=== PATIENT | female | born 1975 | race Caucasian/White ===

== ENCOUNTER → 2018-01-15 13:03 | Outpatient (POV) | payer BC, SELFPAY | PROVIDERS: Family Provider Nurse Practitioner Family; Visit Provider Nurse Practitioner Acute Care | DX: Z00.00 Encounter for general adult medical examination without abnormal findings (principal) ==

== ENCOUNTER → 2018-01-15 13:44 | Outpatient (CLI) | payer BC, SELFPAY ==
[2018-01-15 14:09] LABS: Basophils # 0.1 K/mm3 (0-0.2); Basophils % 0.9 % (0.1-2.0); Eosinophils # 0.1 K/mm3 (0.0-0.4); Eosinophils % 1.3 % (0.1-12.0); Hematocrit 43.5 % (37.0-47.0); Hemoglobin 13.7 g/dL (12.2-16.2); Lymphocytes # 1.2 K/mm3 (0.7-4.5); Lymphocytes % 18.7 K/mm3 (10-50); Mean Corpuscular HGB Conc 31.5 g/dL (31.8-35.4); Mean Corpuscular Hemoglobin 30.6 pg (27.0-31.2); Mean Platelet Volume 7.5 fl (7.4-10.4); Monocytes # 0.3 K/mm3 (0.1-1.0); Monocytes % 5.3 % (1.7-9.3); Neutrophils # 4.7 K/mm3 (1.8-7.8); Neutrophils % 73.7 % (37.0-80.0); Platelet Count 322 K/mm3 (142-424); Red Blood Count 4.48 M/mm3 (4.20-5.40); Red Cell Distribution Width 13.5 % (11.5-17.5); White Blood Count 6.3 K/mm3 (4.8-10.8)
[2018-01-15 15:06] LABS: Alanine Aminotransferase 19 U/L (12-78); Albumin Level 3.9 gm/dL (3.4-5.0); Albumin/Globulin Ratio 1.2 (1.1-1.8); Alkaline Phosphatase 62 U/L (46-116); Anion Gap 11.7 mEq/L (5-15); Aspartate Amino Transferase 16 U/L (15-37); Bilirubin,Total 0.4 mg/dL (0.2-1.0); Blood Urea Nitrogen 6 mg/dL (7-18); Calcium 9.3 mg/dL (8.5-10.1); Carbon Dioxide 29 mmol/L (21.0-32.0); Chloride 105 mmol/L (98-107); Creatinine,Serum 0.68 mg/dL (0.55-1.02); Estimated Glomerular Filt Rate 95 ml/min (>60); Ferritin 35 ng/mL (8-388); GFR (African American) 115 ML/MIN (>60); Globulin 3.3 gm/dl (1.3-3.2); Glucose 93 mg/dL (74-106); Potassium 4.7 mmoL/L (3.5-5.1); Sodium 141 mmol/L (136-145); Total Protein,Serum 7.2 gm/dL (6.4-8.2)
[2018-01-15 15:08] LABS: C-Reactive Protein < 0.2 mg/L (0.0-0.9)
[2018-01-15 15:35] LABS: Erythrocyte Sedimentation Rate 9 mm/hr (0-20)
[2018-01-16 08:23] LABS: Iron 71 ug/dL (27-159); UIBC 289 ug/dL (131-425)
[2018-01-16 12:10] LABS: Iron Saturation 20 % (15-55)
== END ==
PROVIDERS: Family Provider Nurse Practitioner Family; Visit Provider Nurse Practitioner Acute Care
DX: D64.9 Anemia, unspecified (principal)
CPT/HCPCS: 36415; 80053; 82728; 83550; 85025; 85651; 86140

== ENCOUNTER → 2018-01-22 12:26 | Outpatient (CLI) | payer BC, SELFPAY ==
--- NOTE | 2018-01-22 | CT_ITS ---
CT abdomen pelvis w con CT enterography CLINICAL INDICATION: Crohn's disease, prior surgery, evaluate for obstruction ITS.REASON: CROHN'S ORDERING PHYSICIAN: Sara Knott PATIENT AGE: 42 years COMPARISON: 11/22/2016 TECHNIQUE: CT enterography performed with helical imaging following the intravenous administration of 100 mL's of Isovue-370. Arterial and portal venous phase images are obtained. 1500 mL of Breeza given by mouth. Axial images obtained with sagittal and coronal reformats. All CT scans at the facility use one or more dose reduction, viz: automated exposure control; ma/kV adjustment per patient size (including targeted exams where dose is matched to indication; i.e. head); or iterative reconstruction technique. PROCEDURE: Oral Contrast: 1500 mL of Breeza IV Contrast: 100 mL of Isovue-370. FINDINGS: Lung bases are clear. No focal liver lesion. No radio opaque gallstone. The spleen, adrenal glands, pancreas, and kidneys have an unremarkable appearance. No evidence of intestinal obstruction or free air. The small bowel is not dilated. Postsurgical changes are present at the ileocecal junction with suture line present at this region. There is some minimal thickening of the distal aspect of the ileum with mild enhancement at this area but no evidence of obstruction. No other areas of mucosal thickening or enhancement apparent. There is a small right ovarian cyst measuring 2 cm with mild enhancement of the wall. There are bilateral perineural cyst at 16 mm and 14 mm on the right and left respectively. No acute bony anomalies. 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 The SMA has an unremarkable appearance. IMPRESSION: 1. Postsurgical changes at the ileocecal junction with a short segment area of enhancement of the distal ileum and mild thickening suggesting involvement of Crohn's disease. 2. No intestinal obstruction abscess or fistula. 3. 2 cm right ovarian cyst. 4. 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
== END ==
PROVIDERS: Family Provider Nurse Practitioner Family; PCP Nurse Practitioner Family; Visit Provider Nurse Practitioner Acute Care
DX: K50.00 Crohn's disease of small intestine without complications (principal); R10.31 Right lower quadrant pain
CPT/HCPCS: 74177; Q9967

== ENCOUNTER → 2018-02-12 09:02 | Outpatient (POV) | payer BC, SELFPAY | PROVIDERS: Visit Provider Nurse Practitioner Acute Care | DX: Z00.00 Encounter for general adult medical examination without abnormal findings (principal) ==

== ENCOUNTER → 2018-03-08 08:09 | Outpatient (CLI) | payer BC, SELFPAY ==
--- NOTE | 2018-03-08 08:11 | US_ITS ---
US transvaginal HISTORY: Pelvic pain ITS.REASON: US TV FOR Pelvic and abdominal pain ORDERING PHYSICIAN: Xavier Pike MD PATIENT AGE: 42 years Comparison: None FINDINGS: The uterus measures 7.8 x 4.2 x 4.8 cm. There is a small pocket of fluid along the lower aspect of the endometrium which measures 7 x 7 mm. Endometrial thickness is 5 mm. scar is noted along the anterior aspect of the body of the uterus. The left ovary is 3 x 2 cm there is a 1.5 cm left ovarian cyst. The right ovary is 2.6 x 1.9 cm and has an unremarkable appearance. No cul-de-sac fluid is evident. IMPRESSION: 1. Small amount fluid within the endometrium. 2.. Small left ovarian cyst
== END ==
PROVIDERS: Family Provider Nurse Practitioner Family; PCP Nurse Practitioner Family; Visit Provider Nurse Practitioner Obstetrics & Gynecology
DX: R10.2 Pelvic and perineal pain (principal); R10.9 Unspecified abdominal pain
CPT/HCPCS: 76830

== ENCOUNTER → 2018-10-31 13:08 | Outpatient (CLI) | payer BC, SELFPAY ==
--- NOTE | 2018-10-31 13:11 | MR_ITS ---
MR head/brain wo con HISTORY: Severe headache with dizziness and blurred vision ITS.REASON: ACUTE NONINTRACTABLE HEADACHE, DIZZINESS ORDERING PHYSICIAN: Anum Roberts PATIENT AGE: 43 years Comparison: None TECHNIQUE: Standard multiplanar multiecho sequences are performed without contrast. FINDINGS: No midline shift, mass effect, intracranial hemorrhage, or hydrocephalus. No evidence of acute infarction. The cerebellopontine angles, cerebellum, and brainstem have an unremarkable appearance. Normal stern-white matter differentiation with no significant white matter signal alteration evident. The hippocampal gyri are unremarkable and the temporal horns are symmetric. The pituitary, corpus callosum, and craniocervical junction have an unremarkable appearance. Incidental note made of small amount fluid in the right mastoid sinus. Small amount fluid is also noted along the posterior aspect of the right TMJ joint. There is mild mucosal thickening of left ethmoid sinus. IMPRESSION: 1. No acute intracranial findings. 2. Right mastoid effusion. Mild mucosal thickening left ethmoid and maxillary sinus. 3. Small amount of fluid along the posterior aspect of the right TMJ
== END ==
PROVIDERS: PCP Nurse Practitioner Family; Visit Provider Nurse Practitioner Family
DX: R51 Headache (principal); R42 Dizziness and giddiness
CPT/HCPCS: 70551

== ENCOUNTER → 2019-02-07 12:12 | Outpatient (CLI) | payer BC, SELFPAY ==
[2019-02-07 12:46] LABS: Basophils # 0.1 K/mm3 (0-0.2); Eosinophils # 0.1 K/mm3 (0.0-0.4); Eosinophils % 1.4 % (0.1-12.0); Hematocrit 40.5 % (37.0-47.0); Hemoglobin 13.2 g/dL (12.2-16.2); Lymphocytes # 1.6 K/mm3 (0.7-4.5); Lymphocytes % 25.1 % (10-50); Mean Corpuscular HGB Conc 32.7 g/dL (31.8-35.4); Mean Corpuscular Volume 94.8 fl (81-99); Mean Platelet Volume 7.4 fl (7.4-10.4); Monocytes # 0.4 K/mm3 (0.1-1.0); Neutrophils # 4.1 K/mm3 (1.8-7.8); Neutrophils % 65.4 % (37.0-80.0); Platelet Count 338 K/mm3 (142-424); Red Blood Count 4.28 M/mm3 (4.20-5.40); Red Cell Distribution Width 13.4 % (11.5-17.5); White Blood Count 6.2 K/mm3 (4.8-10.8)
[2019-02-07 13:50] LABS: Alanine Aminotransferase 18 U/L (12-78); Albumin Level 3.8 gm/dL (3.4-5.0); Albumin/Globulin Ratio 1.1 (1.1-1.8); Alkaline Phosphatase 66 U/L (46-116); Aspartate Amino Transferase 9 U/L (15-37); Bilirubin,Total 0.4 mg/dL (0.2-1.0); Blood Urea Nitrogen 8 mg/dL (7-18); Carbon Dioxide 26 mmol/L (21.0-32.0); Chloride 104 mmol/L (98-107); Creatinine,Serum 0.71 mg/dL (0.55-1.02); Estimated Glomerular Filt Rate 90 ml/min (>60); GFR (African American) 109 ML/MIN (>60); Globulin 3.5 gm/dl (1.3-3.2); Glucose 92 mg/dL (74-106); Sodium 141 mmol/L (136-145); Total Protein,Serum 7.3 gm/dL (6.4-8.2)
[2019-02-08 13:07] LABS: Adenovirus F 40/41, stool Not Detected (NotDetected); Astrovirus Not Detected (NotDetected); Campylobacter Not Detected (NotDetected); Clostridium Difficile A/B, PCR Not Detected (NotDetected); Cryptosporidium Not Detected (NotDetected); Cyclospora Cayetanesis Not Detected (NotDetected); Entamoeba histolytica Not Detected (NotDetected); Enteroaggregative E coli Not Detected (NotDetected); Enteropathogenic E coli Not Detected (NotDetected); Enterotoxigenic E coli Not Detected (NotDetected); Giardia lamblia Not Detected (NotDetected); Norovirus Not Detected (NotDetected); Plesimonas Shigalloides, PCR Not Detected (NotDetected); Rotavirus A Not Detected (NotDetected); Salmonella, PCR Not Detected (NotDetected); Sapovirus Not Detected (NotDetected); Shiga-like toxin E coli Not Detected (NotDetected); Shigella Enterovasive E coli Not Detected (NotDetected); Vibrio Cholerae Not Detected (NotDetected); Vibrio, PCR Not Detected (NotDetected); Yersinia Entercolitica, PCR Not Detected (NotDetected)
== END ==
PROVIDERS: Visit Provider Nurse Practitioner Family
DX: R10.84 Generalized abdominal pain (principal); R19.7 Diarrhea, unspecified
CPT/HCPCS: 36415; 80053; 85025; 87507

== ENCOUNTER → 2019-02-07 21:20 | Outpatient (CLI) | payer BC, SELFPAY | PROVIDERS: Visit Provider Nurse Practitioner Family | DX: R10.84 Generalized abdominal pain (principal); R19.7 Diarrhea, unspecified ==

== ENCOUNTER → 2019-04-22 06:31 | Outpatient (CLI) | payer BC, SELFPAY ==
--- NOTE | 2019-04-22 06:33 | NM_ITS ---
History:Family history, Tobacco use Procedure: Patient exercised on Sean protocol 9 minutes and 45, resting heart rate 60 bpm, resting blood pressure 118/56, with exercise maximum heart rate achieve was 143 bpm which is less than % of the maximum predicted heart rate and blood pressure was 138/76. Test was stopped due to shortness of breath, patient denied any complaint of chest pain. Patient has good exercise capacity achieved 10.1 mets of workload on treadmill, the blood pressure response to exercise was adequate. Electrocardiogram: Resting electrocardiogram showed sinus rhythm , with exercise there is less than 1.5mm ST segment depression noted from the baseline EKG. The EKG portion of the exercise Myoview is negative for ischemia.. Cardias Stress and Resting SPECT images: Cardias Stress and Resting SPECT images were obtained using technetium 99m Myoview 32.0 mCi stress and 10.50 mCi at rest. Gated SPECT further analysis of segmental wall motion and calculation of ejection fraction also done. Cardiac stress and resting SPECT show uniform myocardial activity without segmental perfusion abnormality , the computer derived ejection fraction is 52% with no regional wall motion abnormality, right ventricle is normal size and contractility. Conclusion: 1. The EKG portion of the exercise Myoview is negative for ischemia, patient has good exercise capacity achieved 10.1mets of workload on treadmill, the blood pressure response to exercise was adequate. Test was stopped due to shortness of breath. 2. No scintigraphic evidence of reversible ischemia seen, computer derived ejection fraction is 52% with no regional wall motion abnormality ,right ventricle is normal size and contractility.. 3. Normal exercise Myoview study.
--- NOTE | 2019-04-22 06:33 | CA_ITS ---
PROCEDURE: 2-D M-mode and color Doppler study INDICATIONS FOR THE TEST: Chest pain X COPD Heart Murmur Tobacco SmokingX Palpitations Fatigue Syncope Edema Hypertension Diabetes Mellitus Rheumatic Fever SOBXDOEXObesity Hyperlipidemia Family History HD Additional History X PATIENT INFORMATION HEIGHT: 65 WEIGHT:169 GENDER: Female B/P:121/69 2-D/M-MODE INTERPRETATION: 2-D MEASUREMENTS OBSERVED VALUES IN CMS Right Ventricular Dimension (RVDd) 2.4 Interventricular Septum (Thickness)(IVsd) 1.0 Left Ventricular Internal Dimensions(LVIDd) 4.9 Left Ventricular Posterior Wall (Thickness)(LVPWd) .8 Aortic Root 2.8 Aortic Cusp Separation Left Atrial Dimensions (LAD) 3.5 2D 1. Left atrium is normal size, left ventricle is normal size, there is no concentric left ventricular hypertrophy, visually estimated ejection fraction 55% with no regional wall motion abnormality. 2. The right atrium and right ventricle are qualitatively mildly enlarged with normal contractility. 3. The aortic valve is minimally thickened and fibrosed. 4. The mitral and tricuspid valvular grossly normal. 5. The pulmonic valve is poorly visualized. 6. No significant pericardial effusion noted. DOPPLER INTERROGATION: Doppler interrogation of the aortic, mitral and tricuspid valvular presence of mild mitral and tricuspid regurgitation, tricuspid regurgitation jet velocity is inadequate for calculation of the right ventricular systolic pressure, diastolic parameters are within normal range. CONCLUSION: 1. Normal left ventricular size, preserved left ventricular systolic function, visually estimated ejection fraction 55% with no regional wall motion abnormality, diastolic parameters are within normal range, inferior vena cava is normal size with normal inspiratory collapse. 2. Mildly qualitatively enlarged right ventricle with normal contractility. 3. Mild mitral and tricuspid regurgitation. 4. No significant pericardial effusion noted.
--- NOTE | 2019-04-22 07:18 | HMH.ITSHM ---
Current Home Medications as stated by this patient Farhana Barnes or reimbursement representative. []RANITIDINE
== END ==
PROVIDERS: PCP Nurse Practitioner Family; Visit Provider Internal Medicine
DX: I20.9 Angina pectoris, unspecified (principal); R06.09 Other forms of dyspnea; I73.9 Peripheral vascular disease, unspecified; F17.200 Nicotine dependence, unspecified, uncomplicated
CPT/HCPCS: 78452; 93017; 93306; A9502

== ENCOUNTER → 2020-06-22 15:29 | Outpatient (CLI) | payer BC, SELFPAY ==
[2020-06-22 15:42] LABS: Basophils # 0.1 K/mm3 (0-0.2); Basophils % 0.8 % (0.1-2.0); Eosinophils # 0.1 K/mm3 (0.0-0.4); Eosinophils % 1.2 % (0.1-12.0); Hematocrit 42.5 % (37.0-47.0); Hemoglobin 13.7 g/dL (12.2-16.2); Lymphocytes # 1.7 K/mm3 (0.7-4.5); Lymphocytes % 20.8 % (10-50); Mean Corpuscular HGB Conc 32.2 g/dL (31.8-35.4); Mean Corpuscular Hemoglobin 30.8 pg (27.0-31.2); Mean Corpuscular Volume 95.5 fl (81-99); Mean Platelet Volume 7.6 fl (7.4-10.4); Monocytes # 0.4 K/mm3 (0.1-1.0); Monocytes % 4.8 % (1.7-9.3); Neutrophils # 5.7 K/mm3 (1.8-7.8); Neutrophils % 72.3 % (37.0-80.0); Platelet Count 317 K/mm3 (142-424); Red Blood Count 4.44 M/mm3 (4.20-5.40); Red Cell Distribution Width 13.4 % (11.5-17.5); White Blood Count 7.9 K/mm3 (4.8-10.8)
[2020-06-22 16:51] LABS: Chloride 105 mmol/L (98-107); Potassium 4.8 mmoL/L (3.5-5.1); Sodium 138 mmol/L (136-145)
[2020-06-22 16:53] LABS: Alanine Aminotransferase 11 U/L (12-78); Aspartate Amino Transferase 21 U/L (14-36); Blood Urea Nitrogen 11 mg/dl (7-17); Estimated Glomerular Filt Rate 91 ml/min (>60); GFR (African American) 110 ML/MIN (>60)
[2020-06-22 16:54] LABS: Albumin Level 4.2 g/dl (3.5-5.0); Albumin/Globulin Ratio 1.6 (1.1-1.8); Alkaline Phosphatase 52 U/L (38-126); Anion Gap 12.8 mEq/L (5-15); Bilirubin,Total 0.9 mg/dl (0.2-1.3); Calcium 9.6 mg/dl (8.4-10.2); Carbon Dioxide 25 mmol/L (22.0-30.0); Globulin 2.7 g/dL (1.3-3.2); Glucose 100 mg/dl (74-100); Total Protein,Serum 6.9 g/dl (6.3-8.2)
== END ==
PROVIDERS: Visit Provider Nurse Practitioner Family
DX: R10.32 Left lower quadrant pain (principal)
CPT/HCPCS: 36415; 80053; 85025

== ENCOUNTER 2022-07-21 16:17 | Emergency (ER) | payer BC, SELFPAY ==
[2022-07-21] VITALS (7 sets, daily range): BP systolic 112–148; BP diastolic 73–97; PULSE 58–86; RESP 14–18; TEMP 36.8–36.9; O2SAT 96–99; BMI 33.6
[2022-07-21 16:47] LABS: Basophils % 0.6 % (0.1-2.0); Eosinophils % 0.6 % (0.1-12.0); Hematocrit 45.5 % (37.0-47.0); Lymphocytes # 1.9 K/mm3 (0.7-4.5); Lymphocytes % 26.2 % (10-50); Mean Corpuscular HGB Conc 30.7 g/dL (31.8-35.4); Mean Corpuscular Hemoglobin 29.7 pg (27.0-31.2); Mean Corpuscular Volume 96.7 fl (81-99); Mean Platelet Volume 7.4 fl (7.4-10.4); Monocytes # 0.4 K/mm3 (0.1-1.0); Monocytes % 5.3 % (1.7-9.3); Neutrophils # 4.8 K/mm3 (1.8-7.8); Neutrophils % 67.3 % (37.0-80.0); Platelet Count 350 K/mm3 (142-424); Red Cell Distribution Width 13.9 % (11.5-17.5); White Blood Count 7.2 K/mm3 (4.8-10.8)
--- NOTE | 2022-07-21 17:04 | PC.NURSE ---
PT finished with oral contrast
[2022-07-21 17:07] LABS: Chloride 104 mmol/L (98-107); Potassium 3.9 mmoL/L (3.5-5.1); Sodium 137 mmol/L (136-145)
[2022-07-21 17:09] LABS: Alanine Aminotransferase 38 U/L (12-78); Aspartate Amino Transferase 46 U/L (14-36); Bilirubin,Total 0.8 mg/dl (0.2-1.3); Blood Urea Nitrogen 12 mg/dl (7-17); Creatinine Clearance Estimated 145 mL/min (50-200); Estimated Glomerular Filt Rate 90 ml/min (>60); GFR (African American) 109 ML/MIN (>60)
[2022-07-21 17:10] LABS: Albumin Level 4.5 g/dl (3.5-5.0); Albumin/Globulin Ratio 1.6 (1.1-1.8); Alkaline Phosphatase 79 U/L (38-126); Anion Gap 12.9 mEq/L (5-15); Calcium 8.9 mg/dl (8.4-10.2); Carbon Dioxide 24 mmol/L (22.0-30.0); Globulin 2.9 g/dL (1.3-3.2); Glucose 97 mg/dl (74-100); Lipase 102 U/L (23-300); Total Protein,Serum 7.4 g/dl (6.3-8.2)
--- NOTE | 2022-07-21 17:59 | CT_ITS ---
PROCEDURE INFORMATION: Exam: CT Abdomen And Pelvis With Contrast Exam date and time: 07/21/2022 6:29 PM Age: 46 years old Clinical indication: Flank; Patient HX: Oral and iv contrast given, left side and left lower abdominal pain. ; Additional info: L flank pain, lower abd pain TECHNIQUE: Imaging protocol: Computed tomography of the abdomen and pelvis with contrast. Radiation optimization: All CT scans at this facility use at least one of these dose optimization techniques: automated exposure control; mA and/or kV adjustment per patient size (includes targeted exams where dose is matched to clinical indication); or iterative reconstruction. Contrast material: ISOVUE; Contrast volume: 75 ml; Contrast route: IV; Other contrast: Oral, gastrograffin, 30; COMPARISON: ABDW CT abdomen w con 02/15/2018 7:33 PM FINDINGS: Tubes, catheters and devices: None noted. Lungs: Lung bases appear clear. Heart: No significant coronary calcifications. No cardiomegaly. No significant pericardial effusion. Liver: Normal. No mass. Gallbladder and bile ducts: Normal. No calcified stones. No ductal dilation. Pancreas: Normal. No ductal dilation. Spleen: Normal. No splenomegaly. Adrenal glands: Normal. No mass. Kidneys and ureters: Normal. No hydronephrosis. Stomach and bowel: Unremarkable. No obstruction. No mucosal thickening. Appendix: No evidence of appendicitis. Intraperitoneal space: Unremarkable. No free air. No significant fluid collection. Retroperitoneal space: No significant retroperitoneal inflammatory changes are noted. Vasculature: Unremarkable. No abdominal aortic aneurysm. Lymph nodes: Unremarkable. No enlarged lymph nodes. Urinary bladder: Unremarkable as visualized. Reproductive: 2 cm left Bartholin's duct cyst. Bilobed left ovarian cyst. Bones/joints: Unremarkable. No acute fracture. Soft tissues: Right periareolar skin thickening. Correlate with mammogram and breast exam. IMPRESSION: 1. No CT evidence of nephroureterolithiasis. 2. Left ovarian cyst. 3. Incidental right periareolar skin thickening. Correlate with mammogram and breast exam.
[2022-07-21 18:06] LABS: Microscopic, Urine URINE MICROSCOPIC (MICROSCOPIC)
[2022-07-21 18:07] LABS: Appearance,Urine CLEAR (Clear); Bilirubin,Urine Negative (Negative); Blood, Urine 1+ (Negative); Color,Urine YELLOW (Yellow); Glucose,Urine (UA) Negative (Negative); Ketones,Urine Negative (Negative); Leukocyte Esterase,Urine Negative (Negative); Nitrate,Urine Negative (Negative); Protein,Urine Negative (Negative); Urobilinogen,Urine 0.2 EU/dl (0.2)
[2022-07-21 18:10] LABS: Urine Pregnancy, HCG Qual. Negative (Negative)
[2022-07-21 18:34] LABS: Bacteria,Urine Trace /lpf; WBC,Urine Occasional #/hpf (0-3)
--- NOTE | 2022-07-21 18:41 | PC.NURSE ---
pt returned from CT
--- NOTE | 2022-07-21 18:52 | HMH.EDGENADL ---
Discharge Plan Disposition Patient Disposition: Home, Self-Care Condition: Good Chief Complaint: PAIN Prescriptions Prescriptions: No Action buspirone 10 mg tablet 10 mg PO Label Comments: TAKE 1 TABLET BY MOUTH TWICE DAILY albuterol sulfate 90 mcg/actuation HFA aerosol inhaler INHALATION Label Comments: INHALE 1 PUFF BY MOUTH EVERY 4 HOURS NEEDED dicyclomine 10 mg capsule 10 mg PO Label Comments: TAKE 1 CAPSULE BY MOUTH 4 TIMES DAILY NEEDED FOR ABDOMINAL PAIN famotidine 40 mg tablet 40 mg PO ustekinumab 90 mg/mL syringe SQ magnesium 250 mg tablet 250 mg PO DAILY Referrals Follow up/Referrals: Anum Roberts APRN [Primary Care Provider] - See instructions Activity Restrictions/Add. Instructions Additional Instructions/Restrictions: Tylenol as needed for pain. Follow-up with Dr. Pike, gynecology, for left ovarian cyst. Clinical Impressions Clinical Impression: Cyst of left ovary Instructions Patient Instructions: DI for Ovarian Cyst Discharge ED Provider: James Rod General Adult HPI General Chief complaint: PAIN Stated complaint: poss passing kidney stone Time Seen by Provider: 07/21/22 18:14 Mode of Arrival: Ambulatory Source of Information: Patient Limitations: No Limitations Description of Symptoms (Recalled from ER Triage Doc. by RN): Pt c/o L flank pain radiating to L lower abd x3 weeks. Pt reports no known injuries, denies fevers, denies urinary pain or symptoms. Pt denies n/v/d. Pt does states has had kidney stones in the past approx 20 years ago but symptoms have not been similar. Pt reports hx of chrons disease. History of Present Illness HPI narrative: 3-week history of pain in her left lower lumbar and flank area radiating to her left lower quadrant. Pain worsens with movements and trying to have a bowel movement. Nausea, but no vomiting. Denies urinary symptoms. No change in bowel habits except that she cannot push to have a bowel movement because it increases pain. No blood in her stool. No fever. No injury recalled. She saw her chiropractor for an adjustment this week which did not help the pain. She has tried ice packs and a electrical stimulator unit without improvement. She has a history of Crohn's disease, states that she has lost a foot of bowel. She says that she has a narrowing in her bowel that is very only recent problem with Crohn's. She sees a acetone button paster to [facility]. In [place]. She is on Stelara for Crohn's disease. She also has a prior history of a kidney stone years ago and felt that this seems to remember that it started like this. Related Data Home Medications Medication Instructions Recorded Confirmed albuterol sulfate 90 mcg/actuation g inhalation 08/07/20 08/07/20 aerosol inhaler buspirone 10 mg tablet 10 mg PO 08/07/20 08/07/20 dicyclomine 10 mg capsule 10 mg PO 08/07/20 08/07/20 famotidine 40 mg tablet 40 mg PO 08/07/20 08/07/20 magnesium 250 mg tablet 250 mg PO DAILY 08/07/20 08/07/20 ustekinumab 90 mg/mL subcutaneous mg SQ 08/07/20 08/07/20 syringe Allergies Allergy/AdvReac Type Severity Reaction Status Date / Time codeine [CODEINE] Allergy Unknown I-HIVES Verified 08/07/20 09:19 metronidazole [From Flagyl] Allergy Hives Verified 08/07/20 09:19 PFSH PFSH Social History Smoking Status: Never smoker alcohol intake: never substance use type: denies use current occupational status: employed Travel in the last 8 weeks: None household members: significant other and children housing: apartment current occupation: [employer] current occupational exposures/hazards: No caffeine: No ROS Obtained: Yes Systems reviewed as appropriate & no additional complaints except as documented Constitutional Constitutional: Denies fever(s), Denies headache(s) and Denies weakness ENT Ears, Nose, Mouth, and Throat: Denies headache(s
--- NOTE | 2022-07-21 19:24 | PC.NURSE ---
report given to jeremias barbosa and jeremias carlson at shift change
[2022-07-21 19:34] LABS: C-Reactive Protein 0.9 mg/L (0-4)
[2022-07-21 20:04] LABS: Erythrocyte Sedimentation Rate 26 mm/hr (0-20)
== END 2022-07-21 20:54 | disposition home or self-care (01) ==
PROVIDERS: Emergency Provider Emergency Medicine; PCP Nurse Practitioner Family
DX: N83.202 Unspecified ovarian cyst, left side (principal); Z79.899 Other long term (current) drug therapy; Z88.6 Allergy status to analgesic agent; Z88.1 Allergy status to other antibiotic agents; K50.90 Crohn's disease, unspecified, without complications
CPT/HCPCS: 74177; 80053; 81001; 81025; 83690; 85025; 85651; 86140; 99284; Q9967

== ENCOUNTER → 2022-07-28 08:03 | Outpatient (CLI) | payer BC, SELFPAY ==
--- NOTE | 2022-07-28 08:09 | XR_ITS ---
FINAL REPORT CLINICAL HISTORY: poss kidney stone, lt sided pain 50 ml iso 300 FINDINGS: IVP HISTORY: Left-sided abdominal pain PROCEDURE: The patient was injected with 100 ml of Isovue. Overhead films were obtained. FINDINGS: The information assurance analyst film is unremarkable. Suture material is noted in the right lower quadrant.Postinjection films demonstrate prompt nephrograms bilaterally. The kidneys are normal in size and contour. There is no hydronephrosis. The imaged portions of the ureters are normal. The urinary bladder is unremarkable. There is a minimal postvoid residual. IMPRESSION: No evidence of obstruction. Films reviewed , interpreted and dictated by Dr. Gallego Transcribed by Joseph Flores PA-C. Reviewed, Interpreted and Dictated by Roney Gallego III, MD Transcribed by RENY Austin Authenticated and [facility]
== END ==
LOC: RAD 08:04
PROVIDERS: PCP Nurse Practitioner Family; Visit Provider Nurse Practitioner Obstetrics & Gynecology
DX: N20.0 Calculus of kidney (principal)
CPT/HCPCS: 74400; Q9967

== ENCOUNTER → 2022-08-04 15:46 | Outpatient (CLI) | payer BC, SELFPAY ==
[2022-08-04 16:29] LABS: Basophils # 0.1 K/mm3 (0-0.2); Basophils % 2.1 % (0.1-2.0); Eosinophils # 0.1 K/mm3 (0.0-0.4); Eosinophils % 1.2 % (0.1-12.0); Hematocrit 42.6 % (37.0-47.0); Hemoglobin 13.4 g/dL (12.2-16.2); Lymphocytes # 1.9 K/mm3 (0.7-4.5); Lymphocytes % 32.6 % (10-50); Mean Corpuscular HGB Conc 31.5 g/dL (31.8-35.4); Mean Corpuscular Hemoglobin 30.5 pg (27.0-31.2); Mean Corpuscular Volume 96.7 fl (81-99); Mean Platelet Volume 8.3 fl (7.4-10.4); Monocytes # 0.4 K/mm3 (0.1-1.0); Monocytes % 6.2 % (1.7-9.3); Neutrophils # 3.5 K/mm3 (1.8-7.8); Platelet Count 421 K/mm3 (142-424); Red Cell Distribution Width 14.4 % (11.5-17.5)
[2022-08-04 16:36] LABS: Chloride 103 mmol/L (98-107)
[2022-08-04 16:37] LABS: Potassium 4.4 mmoL/L (3.5-5.1); Sodium 137 mmol/L (136-145)
[2022-08-04 16:39] LABS: Alanine Aminotransferase 60 U/L (12-78); Aspartate Amino Transferase 45 U/L (14-36); Blood Urea Nitrogen 13 mg/dl (7-17); Estimated Glomerular Filt Rate 90 ml/min (>60); GFR (African American) 109 ML/MIN (>60)
[2022-08-04 16:40] LABS: Albumin Level 4.4 g/dl (3.5-5.0); Albumin/Globulin Ratio 1.5 (1.1-1.8); Alkaline Phosphatase 75 U/L (38-126); Anion Gap 12.4 mEq/L (5-15); Bilirubin,Total 0.9 mg/dl (0.2-1.3); Calcium 9.9 mg/dl (8.4-10.2); Carbon Dioxide 26 mmol/L (22.0-30.0); Globulin 2.9 g/dL (1.3-3.2); Glucose 85 mg/dl (74-100); Total Protein,Serum 7.3 g/dl (6.3-8.2)
[2022-08-04 16:43] LABS: HCG Qualitative, Serum Negative (Negative)
== END ==
PROVIDERS: PCP Nurse Practitioner Family; Visit Provider Nurse Practitioner Obstetrics & Gynecology
DX: R10.2 Pelvic and perineal pain (principal)
CPT/HCPCS: 36415; 80053; 84703; 85025

== ENCOUNTER 2022-08-08 07:36 | Day surgery (SDC) | payer BC, SELFPAY ==
[2022-08-04 13:14] VITALS: BMI 33.9
[2022-08-08] VITALS (11 sets, daily range): BP systolic 116–132; BP diastolic 72–86; PULSE 69–104; RESP 12–18; TEMP 36.1–43; O2SAT 94–98
--- NOTE | 2022-08-08 10:00 | EXP.ANES.CKL ---
PFSH PFSH Medical History Allergies Crohn's disease History of anemia History of COVID-19 History of gastroesophageal reflux (GERD) Kidney stone Migraine Surgical History History of bowel resection History of endometrial ablation History of tonsillectomy and adenoidectomy Hx of section Hx of tubal ligation Family History Brother Colon cancer Family history of myocardial infarction Mother Family history of myocardial infarction Social History Smoking Status: Former smoker pack-years: 17 smoking status stop date: January 2022 alcohol intake: current substance use type: denies use current occupational status: employed Travel in the last 8 weeks: None household members: significant other and children housing: apartment current occupation: [employer] current occupational exposures/hazards: No caffeine: Yes do you feel safe at home: Yes victim of physical abuse: No victim of emotional abuse: No victim of sexual abuse: No would you like helpful sources: No [facility] Anesthesia Checklist Patient Identification Patient Identification: Arm Band and Verbal (Name & ) Structural Data Admitted From: Home Planned Operative Procedure/s: Dx lap Consent for Planned Operative Procedure(s) Verified: Yes NPO Status Verified Time NPO: 00:00 Chart Verification Results Verified: CBC, BMP and HCG Additional verifications Anesthesia Reactions: No Hx Blood Transfusions: No Blood Transfusion Reaction: No Airway Assessment C-Spine Mobility Assessed: Yes TMJ Mobility Assessed: Yes Dentition: Good Dentition Neurological Assessment Level of Consciousness: Awake Hx Seizures: No Numbness or tingling in extremities: No Anesthesia Plan Anesthesia Risk discussed: Yes Anesthesia Plan: Verified ASA Class: II Anesthesia Type: General
--- NOTE | 2022-08-08 11:23 | EXP.ANES.I ---
[facility] Anesthesia Record Part I Anesthesia Record I Intake, IV Amount: 1,000 Estimated blood loss (mL): 0 Urine output (mL): 25 Blood Pressure: 126/74 SaO2: 96 Pulse Rate: 92 Respiratory Rate: 12 Temperature: 97.4 F Patient is:: Awake and Stable Stable to PACU at:: 11:20
--- NOTE | 2022-08-08 11:37 | EXP.OP.NOTE ---
Date of procedure: 08/08/22 Pre-op Diagnosis:: Left lower quadrant pain left ovarian cyst Post-op Diagnosis:: Left lower quadrant pain left hemorrhagic ovarian cyst Procedure performed:: Laparoscopic left ovarian cystectomy Surgeon:: Xavier Pike MD ELECTRONICS TEACHER:: Joseph Horan Anesthesia: GETA Estimated blood loss (mL): 25 Clinical Note:: She is a 46-year-old lady who complains of severe left lower quadrant pain. She was worked up for renal colic and a transvaginal ultrasound showed a 2 cm left ovarian cyst. After having discussed the risks and benefits and the fact that she was not getting any better we elected to perform a diagnostic laparoscopy and left ovarian cystectomy. Operative findings:: She had a 2 cm left ovarian cyst that was full of thin brownish fluid consistent with an old hemorrhagic ovarian cyst. The rest the pelvis appeared normal. Operative note:: She was taken the operating room where general anesthesia was found to be adequate. She was prepped and draped normal sterile fashion in the semilithotomy position. A weighted speculum placed in vagina and the anterior lip of the cervix was grasped with a tenaculum. I then inserted a Gayathri GAYATHRI uterine manipulator into the uterine cavity. The balloon was insufflated. I then changed gloves and injected 10 cc of ropivacaine around the umbilicus and made a small incision within the umbilicus. I inserted Veress needle into the abdominal cavity and the abdominal cavity was insufflated with carbon oxide gas to a pressure of 20 mmHg. I then inserted a 5 mm trocar under direct vision. I injected through and through the pubic hairline, made a small incision here and inserted a 5 mm trocar under direct vision superior to the bladder. I then identified the inferior epigastric arteries on the left side when lateral to these and injected through and through with ropivacaine. Made a small incision and inserted a 5 mm trocar here under direct vision. The findings were as previously dictated. Using harmonic scalpel I then opened up into the left ovarian cyst. I then removed the top of the left ovarian cyst with harmonic scalpel.. Hemostasis was assured and the pelvis was rinsed with normal saline. We then injected approximately 30 cc of 0.25% ropivacaine into the pelvis. Once again hemostasis was assured. The gas was let out of the abdomen and the secondary trochars were removed under direct vision. There was no bleeding from the trocar sites. The primary trocar was then removed along with the camera. The trocar sites were then closed with interrupted subcuticular 4-0 Monocryl suture. Sterile dressings were applied. She tolerated the procedure well and was taken to the recovery room in excellent condition. All sponge, instrument and needle counts were correct. The estimated blood loss was less than 25 cc. Condition: stable Disposition: PACU Specimens:: Left ovarian cyst wall Complications:: None
--- NOTE | 2022-08-08 11:57 | PC.NURSE ---
Pt medicated with Toradol 30mg IV for C/O burning in urethra per PACU order.
--- NOTE | 2022-08-08 12:01 | SUR.PHASEI ---
Pt leaving PACU stable with burning at urethra at 5/10. Toradol given with no affect.
--- NOTE | 2022-08-09 08:11 | P.PNANES_ITS ---
[facility] Anesthesia Record Part II Anesthesia Record Part II Discharge Time: 11:50 Destination: Outpatient Operating Room Dept PACU nurse assessment reviewed?: Yes Patient Condition:: Good Anesthesia Complications:: None Swallowing reflex intact?: Yes Cyanosis?: No Blood Pressure: 116/84 Pulse Rate: 74 Temperature: 97.8 F Mental Status: Alert & Oriented Pain level:: 0 Nausea and/or vomitting:: None Intake, IV Amount: 1,200
[2022-08-09 08:14] VITALS: BP 116/84; PULSE 74; TEMP 36.6
== END 2022-08-08 12:35 | disposition home or self-care (01) ==
PROVIDERS: PCP Nurse Practitioner Family; Visit Provider Nurse Practitioner Obstetrics & Gynecology
PROC: 0TTB4ZZ Resection of Bladder, Percutaneous Endoscopic Approach (ICD-10-PCS; CPT 51999; principal; 2022-08-08 09:00)
DX: N83.202 Unspecified ovarian cyst, left side (principal); Z79.899 Other long term (current) drug therapy
CPT/HCPCS: 58662; 96374; J2405; J2710

== ENCOUNTER → 2022-10-03 15:58 | Outpatient (CLI) | payer BC, SELFPAY ==
[2022-10-03 16:55] LABS: Basophils # 0.1 K/mm3 (0-0.2); Basophils % 1.4 % (0.1-2.0); Eosinophils % 0.6 % (0.1-12.0); Hematocrit 42.5 % (37.0-47.0); Hemoglobin 13.4 g/dL (12.2-16.2); Lymphocytes % 28.7 % (10-50); Mean Corpuscular HGB Conc 31.5 g/dL (31.8-35.4); Mean Corpuscular Hemoglobin 30.2 pg (27.0-31.2); Mean Corpuscular Volume 96.1 fl (81-99); Mean Platelet Volume 8.1 fl (7.4-10.4); Monocytes # 0.3 K/mm3 (0.1-1.0); Monocytes % 4.1 % (1.7-9.3); Neutrophils # 4.6 K/mm3 (1.8-7.8); Neutrophils % 65.2 % (37.0-80.0); Platelet Count 356 K/mm3 (142-424); Red Blood Count 4.43 M/mm3 (4.20-5.40); Red Cell Distribution Width 14.2 % (11.5-17.5); White Blood Count 7.1 K/mm3 (4.8-10.8)
[2022-10-03 17:55] LABS: Alanine Aminotransferase 65 U/L (12-78); Albumin Level 4.6 g/dl (3.5-5.0); Albumin/Globulin Ratio 1.6 (1.1-1.8); Alkaline Phosphatase 80 U/L (38-126); Anion Gap 13.4 mEq/L (5-15); Aspartate Amino Transferase 45 U/L (14-36); Bilirubin,Total 0.5 mg/dl (0.2-1.3); Blood Urea Nitrogen 13 mg/dl (7-17); Calcium 9.2 mg/dl (8.4-10.2); Carbon Dioxide 22 mmol/L (22.0-30.0); Chloride 107 mmol/L (98-107); Estimated Glomerular Filt Rate 90 ml/min (>60); GFR (African American) 109 ML/MIN (>60); Globulin 2.9 g/dL (1.3-3.2); Glucose 96 mg/dl (74-100); Potassium 4.4 mmoL/L (3.5-5.1); Sodium 138 mmol/L (136-145); Total Protein,Serum 7.5 g/dl (6.3-8.2)
[2022-10-03 18:12] LABS: Free T4 (Free Thyroxine) 0.97 ng/dl (0.78-2.19)
[2022-10-06 09:45] LABS: Thyroid Stimulating Hormone 1.45 uIU/mL (0.465-4.68)
== END ==
PROVIDERS: PCP Family Medicine; Visit Provider Nurse Practitioner Family
DX: R42 Dizziness and giddiness (principal); E01.0 Iodine-deficiency related diffuse (endemic) goiter
CPT/HCPCS: 36415; 80053; 84439; 84443; 84481; 85025

== ENCOUNTER → 2022-10-22 08:37 | Outpatient (CLI) | payer BC, SELFPAY ==
--- NOTE | 2022-10-22 | MR_ITS ---
Final Report NAME: Farhana Joshi Negar Hairston / SEX: 1975 / Female MRN / ACC#: [id number] / [id number] ORDERING PHYSICIAN: DELANEY LORENZO EXAM REQUESTED: [id number]--KSI BRAIN W/O CONTRAST FACILITY: [facility] DATE: 10/22/2022 TECHNIQUE: Multiplanar MR, without contrast administration CLINICAL HISTORY: DIZZINESS, CHRONIC FRONTAL SINUSITIS FINDINGS: Diffusion sequences show no signal abnormalities to indicate acute infarct. A single, tiny focus of abnormal T2 FLAIR is seen in the right frontal periventricular region which is normal for patient's age. The brain parenchyma is otherwise homogeneous with normal signal pattern. Ventricles are normal. No edema or hemorrhage is seen. Major vessel flow-voids are intact. Visualized paranasal sinuses are clear. IMPRESSION: Unremarkable MR evaluation of the brain, without contrast Reviewed, Interpreted and Dictated by MD Ojeda Lori, Transcribed by Tere Goldman , Eastern Time [facility]
== END ==
LOC: RAD 08:37
PROVIDERS: PCP Family Medicine; Visit Provider Nurse Practitioner Family
DX: R42 Dizziness and giddiness (principal); J32.1 Chronic frontal sinusitis
CPT/HCPCS: 70551

== ENCOUNTER 2023-12-11 14:35 | Outpatient (CLI) | payer BC, SELFPAY ==
--- NOTE | 2023-12-11 14:42 | XR_ITS ---
FINAL REPORT CLINICAL HISTORY: RLQ abd pain x 3 wks, Crohn s disease FINDINGS: A single view of the abdomen was obtained. There is a nonobstructive bowel gas pattern. There is a moderate amount of retained stool in the colon. There are no abnormally dilated loops of small bowel. Postoperative changes are seen in the right lower quadrant. There are no abnormal calcifications. IMPRESSION: Nonobstructive bowel gas pattern with a moderate amount of retained stool. Reviewed, Interpreted and Dictated by Roney Gallego III, MD Transcribed by Maribel Elias Authenticated and [facility]
== END 2023-12-11 23:59 ==
LOC: RAD 14:37
PROVIDERS: PCP Nurse Practitioner Family; Visit Provider Nurse Practitioner Family
DX: K50.90 Crohn's disease, unspecified, without complications (principal)
CPT/HCPCS: 74018